=== PATIENT | male | born 1950 | race Caucasian/White ===

== ENCOUNTER → 2021-03-30 14:45 | Outpatient (CLI) | payer MEDICARE, OTHER, SELFPAY ==
--- NOTE | 2021-03-30 14:51 | ECHOCS_ITS ---
Reason For Study: ABNORMAL EKG Procedure This was a 2D Doppler, Color Flow transthoracic echocardiogram. The study was technically difficult. Exam performed in department. Left Ventricle Normal LV size. The estimated ejection fraction is 60 %. Normal diastology for age. No regional wall motion abnormalities noted. Right Ventricle Normal RV size. Normal systolic function. Atria Normal left atrium. Normal right atrium. No doppler evidence for ASD. Mitral Valve There is mild mitral annular calcification. There is no mitral valve stenosis. Trivial mitral valve insufficiency. Tricuspid Valve There is no tricuspid stenosis. Unable to estimate RV systolic pressure due to inadequate jet, pulmonary artery pressure probably normal. Aortic Valve Trisinus/trileaflet aortic valve. Aortic sclerosis, no stenosis. There is no aortic stenosis. No aortic valve insufficiency. Pulmonic Valve There is no pulmonic valvular stenosis. No pulmonic valve insufficiency. Great Vessels Normal aortic root. Pericardium/Pleural No pericardial effusion. Medication 22 gauge I.V. with prn adaptor inserted into left arm. Diluted definity 3.5ml given slow IV push to enhance endocardial definition. Performed a rapid injection of agitated mix of 9 cc saline and 1cc air to assess for atrial septal defect. MMode/2D Measurements & Calculations LVIDd: 4.6 cm IVSd: 1.0 cm Ao root diam: 3.4 cm LVIDs: 3.0 cm LVPWd: 0.99 cm RVDd: 3.4 cm FS: 34.4 % LAV(MOD-bp): 38.7 ml LVAd ap4: 31.3 cm2 SV(MOD-sp4): 60.4 ml LAV(MOD-bp) Indexed: 17.6 ml/m2 LVLd ap4: 8.1 cm LAV(MOD-sp2): 39.1 ml EDV(MOD-sp4): 97.7 ml LAV(MOD-sp4): 35.2 ml EDV(sp4-el): 102.5 ml LVAs ap4: 16.8 cm2 LVLs ap4: 6.4 cm ESV(MOD-sp4): 37.3 ml ESV(sp4-el): 37.3 ml EF(MOD-sp4): 61.9 % EF(sp4-el): 63.6 % SV(sp4-el): 65.2 ml LA A4 area: 15.1 cm2 LA dimension(2D): 3.8 cm RA A4 area: 13.2 cm2 Time Measurements MV dec time: 0.23 sec Doppler Measurements & Calculations MV E max edgar: 59.9 cm/sec Lat Peak E' Edgar: 9.1 cm/sec Med Peak E' Edgar: 6.8 cm/sec MV A max edgar: 109.7 cm/sec E/E' lat: 6.6 E/E' med: 8.8 MV E/A: 0.55 Ao V2 max: 135.9 cm/sec LV V1 max: 123.5 cm/sec PA V2 max: 74.3 cm/sec Ao max P.4 mmHg LV V1 max P.1 mmHg ECHO/Echo Complete W/ Contrast Interpretation Summary The estimated ejection fraction is 60 %. Normal diastology for age. Trivial mitral valve insufficiency. The study was technically difficult. Contrast injection was performed. Ordering Physician: Shabnam Davis Referring Physician: Shabnam Davis Performed By: Vannessa López RDCS
== END ==
PROVIDERS: PCP Internal Medicine; Referring Provider Internal Medicine; Visit Provider Internal Medicine
DX: R94.31 Abnormal electrocardiogram [ECG] [EKG] (principal)
CPT/HCPCS: 93306; Q9957; A4216; C8929; J3490

== ENCOUNTER → 2024-06-04 | Outpatient (CLI) | payer MEDICARE, OTHER, SELFPAY ==
--- NOTE | 2024-06-07 11:16 | STRESSREP_ITS ---
Stress Test Report Date: 06/04/2024 Procedure: Exercise tolerance test/imaging study Indications: Abnormal calcium score Consent: Per the patient Procedure: The patient exercised on a Douglas protocol for 7 minutes and 16 seconds achieving a peak heart rate of 125 bpm (85% predicted maximal heart rate) with a peak blood pressure 216/80 mmHg and a peak MET capacity of 10.1 METs. The baseline ECG demonstrated normal sinus rhythm. The peak exercise ECG demonstrated no significant ischemic changes. EKG during recovery revealed no significant ischemic changes [There were no cardiac dysrhythmias pretest, during exercise, or recovery]. The functional capacity was considered excellent for age. There was [no complaint of chest discomfort during exercise or recovery]. The examination was discontinued secondary to achieving target heart rate. Impression: 1. Technically adequate (percent predicted maximal heart rate greater than 85%) exercise tolerance test 2. Stress test is negative for exercise-induced EKG changes of ischemia 3. The test test is negative for exercise-induced chest pain 4. Functional capacity is excellent for age 5. Nuclear images pending Myocardial perfusion imaging study: Technique: The patient was injected with 14.3 mCi of technetium 99m Cardiolite and subsequently rest SPECT Cardiolite nuclear imaging was obtained in the horizontal long, vertical long, and short axis views. The patient exercised on a Douglas protocol. Please see above for details. The patient was injected with 44.5 mCi of technetium 99m Cardiolite and subsequently stress SPECT Cardiolite nuclear imaging was obtained in the horizontal long, vertical long, and short axis views. A gated Cardiolite study at peak stress was obtained. Interpretation: Rest and stress SPECT Cardiolite nuclear imaging status post realignment, normalization, and attenuation correction, demonstrates normal myocardial radioisotope uptake. The gated Cardiolite study demonstrates no significant regional wall motion abnormalities. The reported LVEF is 61%. Impression: 1. There is no evidence of significant ischemia or infarction. 2. The gated Cardiolite study reports an LVEF of 61%. This note was generated with Mes[employer] software. It may contain incorrect words, spelling, and punctuation that were not noted in checking the note before signing.
== END | disposition home or self-care (01) ==
PROVIDERS: PCP Internal Medicine; Referring Provider Internal Medicine; Visit Provider Internal Medicine
DX: R93.1 Abnormal findings on diagnostic imaging of heart and coronary circulation (principal); R94.31 Abnormal electrocardiogram [ECG] [EKG]
CPT/HCPCS: 78452; 93017; A9500; A4216

== ENCOUNTER 2024-08-05 07:05 | Inpatient (IN) | payer MEDICARE, OTHER, SELFPAY ==
[2024-08-05] VITALS (29 sets, daily range): BP systolic 94–175; BP diastolic 60–96; PULSE 68–95; RESP 12–32; TEMP 36.3–38.6; O2SAT 90–100; BMI 39.5; BMI 37.3
--- NOTE | 2024-08-05 07:14 | ED.RN ---
STEMI alert cancelled per Dr. Escoto.
--- NOTE | 2024-08-05 07:16 | EKG12_ITS ---
Test Reason : POST ARREST Blood Pressure : */* mmHG Vent. Rate : 73 BPM Atrial Rate : 73 BPM P-R Int : 158 ms QRS Dur : 100 ms QT Int : 466 ms P-R-T Axes : 58 32 41 degrees QTcB Int : 513 ms Normal sinus rhythm Possible Left atrial enlargement Nonspecific ST abnormality Prolonged QT Abnormal ECG Confirmed by LOUIE DAVIS ([id number]), medical editor ALICIA FAGAN ([id number]) on 08/06/2024 11:54:59 AM Referred By: Logan Escoto Confirmed By: LOUIE DAVIS
--- NOTE | 2024-08-05 07:16 | CT_ITS ---
EXAM: CT HEAD WITHOUT INTRAVENOUS CONTRAST CLINICAL INDICATION: unresponsive TECHNIQUE: Multiple axial images were obtained of the head without intravenous contrast. This CT exam was performed using one or more of the following dose reduction techniques: automated exposure control, adjustment of the mA and/or kV according to patient size, and/or use of iterative reconstruction technique. COMPARISON: No relevant prior studies available. FINDINGS: BRAIN AND EXTRA-AXIAL SPACES: Areas of diminished white matter density noted within both cerebral hemispheres suggestive of chronic microvascular change. No hemorrhage or mass effect. Ventricles are normal in size and the patient''s age. Posterior fossa is normal. Basilar cisterns are patent. BONES/JOINTS: Normal calvarium. SINUSES: No acute sinusitis. MASTOID AIR CELLS: Normal. Clear. CT/Brain/Head without Contrast IMPRESSION: 1. No acute intracranial abnormality. 2. Chronic microvascular changes. Electronically Signed: Flo Eng MD at 8:14 EST ,
--- NOTE | 2024-08-05 07:17 | RAD_ITS ---
EXAM: XR ABDOMEN, 1 VIEW CLINICAL INDICATION: NG Insertion TECHNIQUE: Frontal supine view of the abdomen/pelvis. COMPARISON: No relevant prior studies available. FINDINGS: GASTROINTESTINAL TRACT: Visualized portions of the large bowel are distended suggesting ileus. ORGANS: No organomegaly. BONES/JOINTS: No acute abnormality. TUBES, LINES AND DEVICES: Enteric tube extends into the stomach. Lower half of the abdomen is not included on this exam. RAD/Abdomen Single View (Portable) IMPRESSION: 1. Enteric tube extends into the stomach. 2. Visualized portions of the large bowel are distended suggesting ileus. Electronically Signed: Fol Eng MD at 8:16 EST ,
--- NOTE | 2024-08-05 07:21 | RAD_ITS ---
EXAM: XR CHEST, 1 VIEW CLINICAL INDICATION: ETT TECHNIQUE: Frontal view of the chest. COMPARISON: XR Chest dated 03/23/2007 FINDINGS: LUNGS AND PLEURAL SPACES: Shallow inspiration. No airspace opacification of the lungs. No pleural effusion or pneumothorax. HEART: Normal heart size. MEDIASTINUM: No mediastinal or hilar mass. BONES/JOINTS: No acute abnormality. TUBES, LINES AND DEVICES: Tip of the ET tube is 4.8 cm above the berry. Enteric tube extends into the stomach. RAD/Chest 1 View (Portable) IMPRESSION: Tip of the ET tube is 4.8 cm above the berry. Electronically Signed: Flo Eng MD at 8:15 EST ,
[2024-08-05] MEDS: Propofol 10MG/Ml 1,000 MG/100 ML Bottle 7.5 MG CONT INF (07:26)
[2024-08-05 07:27] LABS: Bacteria 0 SEEN /hpf (None Seen); Mucous, Urine 0 SEEN /hpf (<or=2+); Squamous Epithelial Cells - UA 0 SEEN /hpf (0-5)
[2024-08-05 07:41] LABS: Hemoglobin 15.7 g/dL (13.0-16.5); Mean Corp Hgb Conc 33.4 g/dL (32-36); Mean Corpuscular Hgb 33.4 pg (27.0-32.0); Mean Platelet Vol. 9.9 fl (6.2-12.0); POSITIVE COUNT YES; POSITIVE MORPHOLOGY YES; Platelet Count 237 K/mm3 (150-450); RBC Distribution Width CV 13.3 % (11.6-14.6); RBC Distribution Width SD 49.6 fl (35.1-43.9); White Blood Count 22.2 K/mm3 (4.4-11.0)
[2024-08-05 07:42] LABS: Color, Urine Yellow (Yellow); Glucose, Dipstick 1000 mg/dl (Normal); Ketone-Dipstick Negative (Negative); Leukocyte Esterase-Dipstick Negative /ul (Negative); Nitrite-Dipstick Negative (Negative); Occult Blood-Urine 250 /ul (Negative); Protein-Dipstick 500 mg/dl (Negative); Urine Bilirubin Dipstick Negative (Negative); Urine Clarity Sl. Cloudy (Clear); Urine Urobilinogen Normal (Normal)
[2024-08-05 07:49] LABS: Red Blood Cells-Urine 50-100 SEEN /hpf (0-5); White Blood Cells 0 SEEN /hpf (0-5)
[2024-08-05 08:03] LABS: CPK Total, Creatine Kinase 755 U/L (39-308); Triglycerides 127 mg/dL
--- NOTE | 2024-08-05 08:04 | HP.PCM.HOS_ITS ---
HPI - General General Date of Admission: 08/05/24 Date of Service: 08/05/24 Chief Complaint: Unresponsive HPI Narrative CIELO OLVERA, is a 74 M with a history of hypertension and suspected sleep apnea who presented [facility] ED 08/05/2024 after his found him unresponsive. History obtained per report as no family at bedside and patient intubated. Reportedly patient sleep in separate bedrooms as he snores, this a.m. heard him snoring differently than usual and when she went in and tried to wake him up he was unresponsive so she called EMS. Patient was in V-fib when they arrived and he received epinephrine and 2 defibrillation's, initial EKG was concerning for STEMI however when he arrived STEMI alert canceled by cardiology still plan to take him immediately to the [facility]. Patient had LMA on arrival to the ED and was successfully intubated. Patient placed on amiodarone, heparin drip, propofol. CT head obtained to verify no bleed and did not demonstrate any hemorrhage. Reportedly patient recently had a stress test that was unremarkable though it is unclear why this was done but sounds as it was more of a screening stress test. Patient evaluated at bedside prior to [facility]. Unable to obtain further history as patient intubated and sedated, no family at bedside at this time [facility] Medical History (Updated 08/05/24 @ 08:[address] Migue Willams, ) Actinic keratitis Allergic rhinitis Hyperglycemia Hyperlipemia Hypertension Sinusitis Thoracic ascending aortic aneurysm Home Medications ?Medication ?Instructions ?Recorded ?Last Taken ?Type amlodipine 5 mg tablet (Norvasc) 5 mg PO QDAY 07/01/24 Unknown History multivitamin 1 tab PO QDAY 07/01/24 Unknown History sildenafil 100 mg tablet 100 mg PO 3XW PRN 07/01/24 Unknown History Allergy/AdvReac Type Severity Reaction Status Date / Time No Known Allergies Allergy Verified 08/05/24 07:06 Family History unable to obtain Social History Smoking Status: Current some day smoker tobacco type: cigarettes Tobacco: How many years used: 20 quit status: considering quitting ROS ROS Narrative Unable to obtain secondary to intubated and sedated Vital Signs Vital Signs Vital Signs: 08/05/24 07:06 08/05/24 07:06 08/05/24 07:14 Temperature 97.7 F L Temperature Source Temporal Pulse Rate 68 84 Respiratory Rate 14 18 Respiratory Effort Mechanically Ventilated Respiratory Depth Normal Respiratory Pattern Normal Blood Pressure 175/96 H 175/96 H Blood Pressure Mean 122 122 Pulse Ox 95 96 Oxygen Delivery Method Ambu-Bag Ambu-Bag Oxygen Flow Rate (L/min) 15 Fraction of Inspired Oxygen (FIO2) 08/05/24 07:14 08/05/24 07:36 08/05/24 07:40 Temperature Temperature Source Pulse Rate 73 71 Respiratory Rate 22 H 20 H Respiratory Effort Respiratory Depth Respiratory Pattern Tachypnea Blood Pressure 134/72 H 134/72 H Blood Pressure Mean 92 92 Pulse Ox 94 97 Oxygen Delivery Method Mechanical Ventilator Oxygen Flow Rate (L/min) Fraction of Inspired Oxygen (FIO2) 50 Weight Weight: 125 kg Body Mass Index (BMI) 39.5 Physical Exam Narrative General: Intubated and sedated HEENT: Atraumatic, normocephalic Eyes: Eyes closed, no spontaneous opening Neck: Supple Respiratory: Mechanically ventilated Cardiovascular: Regular rate and rhythm at this time GI: Slightly distended Extremities: No edema Musculoskeletal: Presently sedated and not moving extremities spontaneously Neuro: Unable to participate in neuro exam secondary to intubated and sedated Skin: No rashes appreciated Psych: Unable to cooperate secondary to intubated and sedated Results Lab / Micro Data 08/05/24 07:31 08/05/24 07:31 Labs: Laboratory Results - last 24 hr 08/05/24 07:22: Urine Color Yellow, Urine Clarity Sl. Cloudy, Urine pH 7.0, Ur Specific [place] 1.010, Urine Protein 500 H, Urine Glucose (UA) 1000 H, Urine Ketones Negative, Urine Occult Blood 250 H, Urine Nitrite Negative, Urine Bilirubin Negative, Urine Urobilinogen Normal, Ur Leukocyte Esterase Negative, Urine RBC 50-100 SEEN, Urine WBC 0 SEEN, Ur Squamous Epith Cells 0 SEEN, Urine Bacteria 0 SEEN, Urine Mucus 0 SEEN 08/05/24 07:31: PT Cancelled 08/05/24 07:31: PT Cancelled, INR Cancelled 08/05/24 07:31: INR Cancelled, APTT Cancelled 08/05/24 07:31: APTT Cancelled, Total Creatine Kinase 755 H, Triglycerides 127 Assessment & Plan Assessment/Plan (1) Cardiac arrest with ventricular fibrillation: PLAN: Plan # Unresponsive with V-fib arrest -Patient was outside hospital arrest, found patient unresponsive and EMS found patient to be in V-fib, received epinephrine and was defibrillated x 2 -Presently normal sinus rhythm -Patient snores and there is concern for sleep apnea, unclear if there could have been any primary hypoxia or hypercapnia, ABG ordered the patient is presently mechanically ventilated -CT head with no overt bleeding -There is suspicion there could have been a cardiac event so patient going emergently to [facility] -Initial troponin 12,700 -Patient on heparin drip and amiodarone drip -Cardiology consult -Reclaimer consult -Echo ordered # Acute respiratory failure -Secondary to V-fib arrest -Patient was not protecting his airway and required intubation in the ED -Chest x-ray with no airspace opacification, pleural effusions, or pneumothorax -Patient will be admitted to ICU after [facility] -Reclaimer consult # Elevated troponin -Initial troponin 12,700 -Unclear if primary coronary event or if this is secondary to V-fib arrest -Patient on heparin drip and amiodarone -Patient emergently going to [facility] -Discussed with [employer] ticket checker at bedside # Hyperglycemia -Glucose 322 in the ED -Do not see where patient has history of diabetes -Could be stress response but unclear -Glucose checks and sliding scale insulin -Will check A1c # Elevated lactic acid -6.5 -Suspect due to V-fib arrest -Will trend -IVF # CHE versus CKD -Creatinine 1.45 but no baseline available in our system -IVF ordered -Repeat in the a.m. -Avoid nephrotoxic agents were possible # Elevated liver function tests -Suspect secondary to cardiac arrest and likely hypoperfusion -Repeat in the a.m. # Leukocytosis -Suspect secondary to stress response however unclear, chest x-ray with no acute process, reviewed film and agree with radiologist interpretation -UA does not appear infectious, COVID-negative -Will obtain blood cultures, respiratory panel, sputum culture if able -Not presently febrile no source of infection # Possible ileus -Seen on KUB -Patient with enteric tube in place #DVT ppx: Presently on heparin drip Mila Latham MD Charges/Coding Visit Charges Inpatient E&M: 81935 Init Hosp L3
[2024-08-05] MEDS: HEPARIN/D5w 25,000 UNITS 25,000 UNITS/250 ML IV.SOLN. 0.1 UNITS CONT INF (08:05)
[2024-08-05] MEDS: Famotidine 200 MG/20 ML MDV 20 MG in 0.9% Normal Saline (Pres. free 8 ML 300 MG IV (08:05)
[2024-08-05 08:06] LABS: Differential Indicated MANUAL DIFF
[2024-08-05] MEDS: Amiodarone 360 MG in Dextrose 5% Viaflo Bag 192.8 ML 33.3 MG CONT INF (08:06)
[2024-08-05 08:08] LABS: AST(SGOT) 135 U/L (15-37); Alanine Aminotransfer ALT/SGPT 70 U/L (16-61); Albumin, Serum 3.2 g/dL (3.2-5.0); Alkaline Phosphatase 124 U/L (45-117); Anion Gap 15 (5-15); BUN 13 mg/dL (7-18); Chloride 104 mmol/L (98-107); Creatinine, Serum 1.45 mg/dL (0.70-1.30); EST Glomerular Filtration Rate 51 mL/min (>60); Est Glom Filt Rate - Afr Amer 61 mL/min (>60); Globulin 3.2 g/dL (2.2-4.2); Glucose 322 mg/dL (74-106); Protein, Total 6.4 g/dL (6.4-8.2); Sodium Level 137 mmol/L (136-145); Troponin-I HS (w/2H Reflex) 12768 pg/mL (3.0-78.0)
[2024-08-05 08:08] LABS: Lactic Acid 6.5 mmol/L (0.4-1.9)
--- NOTE | 2024-08-05 08:16 | EX.ED.DYSGE1 ---
HPI History of Present Illness Chief Complaint: Chest Pain Informant: family and EMS Narrative Narrative: Patient presented by EMS from home cardiac arrest secondary to V-fib. There was a prehospital EKG ST depression lateral leads slight aVR elevation, STEMI call was initiated prearrival. Per EMS status post 4 direct-current cardioversions for V-fib. He was given epi x 2. He had a return of spontaneous circulation. LMA was placed. He is also status post 300 mg of amiodarone per EMS. Only notable history was hypertension. Per EMS patient spouse sleeps in separate rooms. There was snoring. Unresponsive. CPR started right away by spouse continued by EMS with treatment. Later discussion with spouse after return of spontaneous circulation on a ventilator. He has undiagnosed sleep apnea, they sleep in separate rooms due to snoring. She went into the room he is snoring a little differently she tried to wake him up he did not wake up therefore EMS was called. There is no cyanosis noted per spouse. Reported he had a screening stress test 3 weeks ago that was normal followed up with his PCP a week ago. she states he had a positive screening test. Unclear but likely calcium scoring test. Denied any cardiac history. Prior similar symptoms: No PFSH PFS Medical History (Updated 08/05/24 @ 14:34 by Noemi Fernández) STEMI (ST elevation myocardial infarction) (08/04/21) CAD (coronary artery disease), [place] coronary artery Tobacco abuse Thoracic ascending aortic aneurysm Allergic rhinitis Sinusitis Hyperlipemia Actinic keratitis Hypertension Hyperglycemia Home Medications ?Medication ?Instructions ?Recorded ?Last Taken ?Type amlodipine 5 mg tablet (Norvasc) 5 mg PO QDAY 07/01/24 Unknown History multivitamin 1 tab PO QDAY 07/01/24 Unknown History sildenafil 100 mg tablet 100 mg PO 3XW PRN 07/01/24 Unknown History Allergy/AdvReac Type Severity Reaction Status Date / Time No Known Allergies Allergy Verified 08/05/24 07:06 Family History (Updated 08/05/24 @ 09:48 by Yamileth MENARD, PA) Mother Heart disease Hypertension Family History unable to obtain Surgical History (Updated 08/05/24 @ 12:26 by Magdaleno Pritchard [employer], [employer] MECH[employer]IC-C) S/P coronary artery stent placement Social History Smoking Status: Current some day smoker tobacco type: cigarettes Tobacco: How many years used: 20 quit status: considering quitting ROS ROS ED Review of Systems ROS Unobtainable: due to endotracheal tube and due to mental status EXAM Physical Exam Const Vital Signs: 08/05/24 07:06 08/05/24 07:06 08/05/24 07:14 Temperature 97.7 F L Temperature Source Temporal Pulse Rate 68 84 Respiratory Rate 14 18 Respiratory Effort Mechanically Ventilated Respiratory Depth Normal Respiratory Pattern Normal Blood Pressure 175/96 H 175/96 H Blood Pressure Mean 122 122 Pulse Ox 95 96 Oxygen Delivery Method Ambu-Bag Ambu-Bag Oxygen Flow Rate (L/min) 15 Fraction of Inspired Oxygen (FIO2) 08/05/24 07:14 08/05/24 07:36 08/05/24 07:40 Temperature Temperature Source Pulse Rate 73 71 Respiratory Rate 22 H 20 H Respiratory Effort Respiratory Depth Respiratory Pattern Tachypnea Blood Pressure 134/72 H 134/72 H Blood Pressure Mean 92 92 Pulse Ox 94 97 Oxygen Delivery Method Mechanical Ventilator Oxygen Flow Rate (L/min) Fraction of Inspired Oxygen (FIO2) 50 Constitutional Narrative: Unresponsive with LMA on a backboard. HEENT Reports moist mucous membranes Eyes Eyes Narrative: Nondilated pupils Chest Wall Chest Narrative: Chest compression vest device Cardio regular rate and regular rhythm GI normal to inspection, nondistended, normoactive bowel sounds Extremity Extremity Narrative: Occasional jerking movements of arms and legs Psych Psych Narrative: Unresponsive, GCS 3 MDM MDM MDM Narrative Medical decision making narrative: Interventions / MDM: Differential diagnosis: V-fib arrest, respiratory failure, hypertension history Diagnosis considered but do not suspect: Intracranial hemorrhage/brain swell however CT brain negative. My EKG interpretation: EKG at 0706: ST depressions lateral leads I rhythm lead on inferior leads had elevation. 0708: Repeated due to artifactual concerns there slight elevation at aVR depressions at lateral leads. Does not meet STEMI criteria. Imaging independently reviewed and interpreted by myself: CT brain: No edema noted, no intracranial hemorrhage. 1 view chest x-ray: ETT intact in correct position. No pneumothorax. KUB 1 view: NG tube in adequate position. External documents reviewed: N/A Test considered but not ordered:N/A ED course: Patient had EKG sent to STEMI physician Dr. Escoto, did not meet STEMI criteria. With a V-fib arrest status post amiodarone 300 by EMS. Recommend amiodarone drip recommend heparin drip. Patient had labs drawn, definitive airway was placed with no difficulties, NG tube. X-rays in adequate position. He was sent for CT of the brain to rule out intracranial hemorrhage or edema. Procedure note: Airway exchange. Patient currently LMA with [id number] oxygenation. LMA removed, suctioning performed, Glidoscope use direct visualization. 7.5 Faroese tube placed directly in the airway. Positive capnography positive breath sounds. This was secured 25 cm at the lips. No complications. Post intubation x-ray good position. 0750: Morning interventions Dr. Christiansen down the ED reviewed EKG and imaging studies with CT brain and discussed his history. With V-fib arrest there is concerning for possible LAD lesion therefore with negative CT will be taken to the [facility]. Heparin drip was started. Family was updated both by myself and cardiology. There was noted blood from the NG tube therefore Pepcid IV was ordered likely stress-induced from his V-fib arrest. I spoke with hospitalist Dr. Latham for plan admission to ICU after [facility]. 0815: Discussed with patient's PCP Dr. Ortega, he had a calcium score that was 250 range not significant. She states the LAD calcium was in the 140s, RCA was 110s. Reported he had a 3.4 cm known thoracic aneurysm ascending pending vascular referral. 0820: Troponin returned while patient in [facility] 12,000 768. Lactate 6.5. Creatinine 1.45. White count 22. Hemoglobin 15. Urine with RBCs. No infection. COVID-negative. Re-evaluation: Critical Disposition discussed with patient/family/significant other: Patient and family Case discussed with consulting clinician: Interventional cardiology, hospitalist This note was generated with reportbrain dictation software. It may contain incorrect words, spelling, and punctuation that were not noted in checking the note before signing. Lab Data Attestation: I reviewed the patient's lab results. Labs: Laboratory Results - last 24 hr 08/05/24 08/05/24 08/05/24 07:22 07:26 07:31 WBC 22.2 H RBC 4.70 Hgb 15.7 Hct 47.0 MCV 100.0 H MCH 33.4 H MCHC 33.4 RDW Std Deviation 49.6 H RDW Coeff of Cecilio 13.3 Plt Count 237 MPV 9.9 Neut % (Auto) Not Reportable Absolute Neuts (auto) 17.3 H Absolute Lymphs (auto) 3.77 Total Counted 100 Neutrophils % (Manual) 75 H Band Neutrophils % 3 Lymphocytes % (Manual) 17 L Monocytes % (Manual) 1 Eosinophils % (Manual) 2 Metamyelocytes % 2 H Diff Path Review May foll Platelet Estimate ADEQUATE RBC Morphology NORM C+C Polychromasia 1+ PT Cancelled INR APTT Sodium Potassium Chloride Carbon Dioxide Anion Gap BUN Creatinine Estim Creat Clear Calc Est GFR (MDRD) Af Amer Est GFR (MDRD) Non-Af BUN/Creatinine Ratio Glucose Lactic Acid 6.5 H* Calcium Total Bilirubin AST ALT Alkaline Phosphatase Total Creatine Kinase Troponin I High Sens Total Protein Albumin Globulin Albumin/Globulin Ratio Triglycerides Urine Color Yellow Urine Clarity Sl. Cloudy Urine pH 7.0 Ur Specific [place] 1.010 Urine Protein 500 H Urine Glucose (UA) 1000 H Urine Ketones Negative Urine Occult Blood 250 H Urine Nitrite Negative Urine Bilirubin Negative Urine Urobilinogen Normal Ur Leukocyte Esterase Negative Urine RBC 50-100 SEEN Urine WBC 0 SEEN Ur Squamous Epith Cells 0 SEEN Urine Bacteria 0 SEEN Urine Mucus 0 SEEN 08/05/24 08/05/24 08/05/24 07:31 07:31 07:31 WBC RBC Hgb Hct MCV MCH MCHC RDW Std Deviation RDW Coeff of Cecilio Plt Count MPV Neut % (Auto) Absolute Neuts (auto) Absolute Lymphs (auto) Total Counted Neutrophils % (Manual) Band Neutrophils % Lymphocytes % (Manual) Monocytes % (Manual) Eosinophils % (Manual) Metamyelocytes % Diff Path Review Platelet Estimate RBC Morphology Polychromasia PT Cancelled INR Cancelled Cancelled APTT Cancelled Cancelled Sodium 137 Potassium 4.0 Chloride 104 Carbon Dioxide 18.0 L Anion Gap 15 BUN 13 Creatinine 1.45 H Estim Creat Clear Calc 60.20 Est GFR (MDRD) Af Amer 61 Est GFR (MDRD) Non-Af 51 L BUN/Creatinine Ratio 9.0 L Glucose 322 H Lactic Acid Calcium 9.0 Total Bilirubin 0.60 AST 135 H ALT 70 H Alkaline Phosphatase 124 H Total Creatine Kinase 755 H Troponin I High Sens 20955 H* Total Protein 6.4 Albumin 3.2 Globulin 3.2 Albumin/Globulin Ratio 1.0 Triglycerides 127 Urine Color Urine Clarity Urine pH Ur Specific [place] Urine Protein Urine Glucose (UA) Urine Ketones Urine Occult Blood Urine Nitrite Urine Bilirubin Urine Urobilinogen Ur Leukocyte Esterase Urine RBC Urine WBC Ur Squamous Epith Cells Urine Bacteria Urine Mucus Radiography Diagnostic Testing: Clinical Impression(s) from Imaging Studies Brain CT 08/05/24 07:16 IMPRESSION: 1. No acute intracranial abnormality. 2. Chronic microvascular changes. Electronically Signed: Flo Eng MD at 8:14 EST Reading Location ID and State: [facility] / [place] Tel , Service support , KUB X-Ray 08/05/24 07:17 IMPRESSION: 1. Enteric tube extends into the stomach. 2. Visualized portions of the large bowel are distended suggesting ileus. Electronically Signed: Flo Eng MD at 8:16 EST Reading Location ID and State: [facility] / [place] Tel , Service support , Chest X-Ray 08/05/24 07:21 IMPRESSION: Tip of the ET tube is 4.8 cm above the berry. Electronically Signed: Flo Eng MD at 8:15 EST , Critical Care Time Critical Care Time: Yes Critical care time (excluding procedures): 30-74 minutes, Discussing w/Patient &/or Family/Poster, Discussing w/Consultants, Arranging Admission or Transfer, Performing Direct Patient Care at Bedside and - (40 minutes) Discharge Plan Dx/Rx/DC Orders Clinical Impression: Cardiac arrest with ventricular fibrillation, Hypertension, Acute respiratory failure, Sleep apnea Disposition Disposition: [facility]
[2024-08-05 08:24] LABS: International Normalized Ratio 1.1; Prothrombin Time (Protime)PT. 14.6 SECONDS (11.7-14.9)
[2024-08-05 08:25] LABS: Partial Thromboplast Time 25.3 Seconds (24.1-36.2)
--- NOTE | 2024-08-05 08:37 | CON.PCM.CA_ITS ---
<Statement entered by Ara Christiansen MD - 08/05/24 16:16> Cardiac care plan recommendations; Pt seen & evaluated w/MARCELO. I personally interviewed & exam the pt. I was involved in all aspects of pt's orders, interpretation of results & treatment Very critical patient with cardiac arrest CPR was done by his at home He was shocked twice by EMS for V-fib and was started NAB Brought into the ED at [facility] where he had a CT head showed no cerebral bleed Taken to the [facility] Underwent cardiac catheterization. Had an PR and a flush occlusion of diagonal branch with a moderate size LAD. Was critical patient intubated. Also had a high-grade lesion involving large dominant proximal RCA where he underwent PCI and stent using drug-eluting stent. Patient will be monitoring ICU Also noted he had hematuria and discontinued the Integrilin Repeat echocardiogram showed global LV hypokinesia with severe LV systolic dysfunction EF in the range of around 25% Will continue medical therapy. Guarded prognosis based on his current presentation. Will continue to monitor and follow-up clinically. I discussed the finding of cardiac catheterization and the cardiac care plan in detail with the family/ Patient transferred from [facility] to ICU he was still intubated. However he was stable hemodynamically. Ara Christiansen MD,FACC,[facility] Ara Christiansen MD,FACC,[facility] Assessment & Plan Assessment/Plan (1) Cardiac arrest with ventricular fibrillation: (2) CAD (coronary artery disease), [place] coronary artery: (3) S/P coronary artery stent placement: (4) Hypertension: (5) Hyperlipemia: HPI Consult Data Date of Consult: 08/05/24 HPI Narrative HPI Narrative: CIELO OLVERA, is a 74 M who presented to [facility] emergency room on 08/05/2024 after his found him unresponsive. This morning had noted was snoring differently than what he had prior. She tried to wake him up and he was unresponsive she called EMS. Patient was noted to be in V-fib when they arrived. He did receive epinephrine and 2 defibrillations, initial EKG was concerning for STEMI. He was intubated upon arrival to the emergency room, placed on amiodarone, heparin drip and propofol. CT of the head did not demonstrate any bleed or hemorrhage. He was urgently taken to the [facility]. In May 2024 he underwent a stress test where he was able to walk for 7 minutes and 16 seconds with the Douglas protocol. No EKG changes were noted. Nuclear images were negative for ischemia. Stress test was done for abnormal calcium score. He does have a history of hypertension, hyperlipidemia, tobacco abuse in which she was working on smoking cessation. [facility] Medical History (Updated 08/05/24 @ 09:50 by Yamileth MENARD, PA) CAD (coronary artery disease), [place] coronary artery Tobacco abuse Thoracic ascending aortic aneurysm Allergic rhinitis Sinusitis Hyperlipemia Actinic keratitis Hypertension Hyperglycemia Home Medications ?Medication ?Instructions ?Recorded ?Last Taken ?Type amlodipine 5 mg tablet (Norvasc) 5 mg PO QDAY 07/01/24 Unknown History multivitamin 1 tab PO QDAY 07/01/24 Unknown History sildenafil 100 mg tablet 100 mg PO 3XW PRN 07/01/24 Unknown History Allergy/AdvReac Type Severity Reaction Status Date / Time No Known Allergies Allergy Verified 08/05/24 07:06 Family History (Updated 08/05/24 @ 09:47 by Yamileth MENARD, PA) Mother Heart disease Hypertension Family History unable to obtain Surgical History (Updated 08/05/24 @ 09:50 by Yamileth MENARD PA) S/P coronary artery stent placement Social History Smoking Status: Current some day smoker tobacco type: cigarettes Tobacco: How many years used: 20 quit status: considering quitting ROS ROS Narrative Unable to obtain secondary to intubated and sedated Risk Stratification Risk Stratification Applicable: Yes Age >/= 65: Yes >/= 3 CAD Risk Factors (HTN, HLD, DM, family hx of CAD, or current smoker): Yes Aspirin Use in the Past 7 Days: No Severe Angina (>/= episodes in 24 hours): No EKG ST Changes >/= 0.5mm: Yes Positive Cardiac Marker: Yes JOSÉ MIGUEL Risk Stratification Score: 4 JOSÉ MIGUEL % Risk: 20% Risk Objective Data Vital Signs: Vital Signs Temp Pulse Resp BP Pulse Ox O2 Del Method O2 Flow Rate 97.7 F L 71 20 H 134/72 H 97 Mechanical Ventilator 15 08/05/24 07:06 08/05/24 07:36 08/05/24 07:36 08/05/24 07:40 08/05/24 07:36 08/05/24 07:36 08/05/24 07:06 FiO2 50 08/05/24 07:14 Oxygen Flow Rate (L/min) 15 Oxygen Delivery Method Mechanical Ventilator Weight: 275 lb 9.245 oz Body Mass Index (BMI) 39.5 Intake & Output: Intake and Output for Last 24 Hours 08/03/24 08/04/24 08/05/24 23:59 23:59 23:59 Intake Total 111.75 / 111.75 Balance 111.75 / 111.75 Lab / Micro Data 08/05/24 07:31 08/05/24 07:31
--- NOTE | 2024-08-05 08:37 | PCM.CONS.C ---
Assessment & Plan Assessment/Plan (1) Cardiac arrest with ventricular fibrillation: (2) CAD (coronary artery disease), [place] coronary artery: (3) S/P coronary artery stent placement: (4) Hypertension: (5) Hyperlipemia: HPI Consult Data Date of Consult: 08/05/24 HPI Narrative HPI Narrative: CIELO OLVERA, is a 74 M who presented to [facility] emergency room on 08/05/2024 after his found him unresponsive. This morning had noted was snoring differently than what he had prior. She tried to wake him up and he was unresponsive she called EMS. Patient was noted to be in V-fib when they arrived. He did receive epinephrine and 2 defibrillations, initial EKG was concerning for STEMI. He was intubated upon arrival to the emergency room, placed on amiodarone, heparin drip and propofol. CT of the head did not demonstrate any bleed or hemorrhage. He was urgently taken to the [facility]. In May 2024 he underwent a stress test where he was able to walk for 7 minutes and 16 seconds with the Douglas protocol. No EKG changes were noted. Nuclear images were negative for ischemia. Stress test was done for abnormal calcium score. He does have a history of hypertension, hyperlipidemia, tobacco abuse in which she was working on smoking cessation. [facility] Medical History (Updated 08/05/24 @ 09:50 by Yamileth MENARD, PA) CAD (coronary artery disease), [place] coronary artery Tobacco abuse Thoracic ascending aortic aneurysm Allergic rhinitis Sinusitis Hyperlipemia Actinic keratitis Hypertension Hyperglycemia Home Medications ?Medication ?Instructions ?Recorded ?Last Taken ?Type amlodipine 5 mg tablet (Norvasc) 5 mg PO QDAY 07/01/24 Unknown History multivitamin 1 tab PO QDAY 07/01/24 Unknown History sildenafil 100 mg tablet 100 mg PO 3XW PRN 07/01/24 Unknown History Allergy/AdvReac Type Severity Reaction Status Date / Time No Known Allergies Allergy Verified 08/05/24 07:06 Family History (Updated 08/05/24 @ 09:47 by Yamileth MENARD, PA) Mother Heart disease Hypertension Family History unable to obtain Surgical History (Updated 08/05/24 @ 09:50 by Yamileth MENARD, PA) S/P coronary artery stent placement Social History Smoking Status: Current some day smoker tobacco type: cigarettes Tobacco: How many years used: 20 quit status: considering quitting ROS ROS Narrative Unable to obtain secondary to intubated and sedated Risk Stratification Risk Stratification Applicable: Yes Age >/= 65: Yes >/= 3 CAD Risk Factors (HTN, HLD, DM, family hx of CAD, or current smoker): Yes Aspirin Use in the Past 7 Days: No Severe Angina (>/= episodes in 24 hours): No EKG ST Changes >/= 0.5mm: Yes Positive Cardiac Marker: Yes JOSÉ MIGUEL Risk Stratification Score: 4 JOSÉ MIGUEL % Risk: 20% Risk Objective Data Vital Signs: Vital Signs Temp Pulse Resp BP Pulse Ox O2 Del Method O2 Flow Rate 97.7 F L 71 20 H 134/72 H 97 Mechanical Ventilator 15 08/05/24 07:06 08/05/24 07:36 08/05/24 07:36 08/05/24 07:40 08/05/24 07:36 08/05/24 07:36 08/05/24 07:06 FiO2 50 08/05/24 07:14 Oxygen Flow Rate (L/min) 15 Oxygen Delivery Method Mechanical Ventilator Weight: 275 lb 9.245 oz Body Mass Index (BMI) 39.5 Intake & Output: Intake and Output for Last 24 Hours 08/03/24 08/04/24 08/05/24 23:59 23:59 23:59 Intake Total 111.75 / 111.75 Balance 111.75 / 111.75 Lab / Micro Data 08/05/24 07:31 08/05/24 07:31 Labs: Laboratory Results - last 24 hr 08/05/24 07:22: Urine Color Yellow, Urine Clarity Sl. Cloudy, Urine pH 7.0, Ur Specific [place] 1.010, Urine Protein 500 H, Urine Glucose (UA) 1000 H, Urine Ketones Negative, Urine Occult Blood 250 H, Urine Nitrite Negative, Urine Bilirubin Negative, Urine Urobilinogen Normal, Ur Leukocyte Esterase Negative, Urine RBC 50-100 SEEN, Urine WBC 0 SEEN, Ur Squamous Epith Cells 0 SEEN, Urine Bacteria 0 SEEN, Urine Mucus 0 SEEN 08/05/24 07:26: Lactic Acid 6.5 H* 08/05/24 07:31: WBC 22.2 H, RBC 4.70, Hgb 15.7, Hct 47.0, MCV 100.0 H, MCH 33.4 H, MCHC 33.4, RDW Std Deviation 49.6 H, RDW Coeff of Cecilio 13.3, Plt Count 237, MPV 9.9, Neut % (Auto) Not Reportable, PT Cancelled 08/05/24 07:31: PT Cancelled, INR Cancelled 08/05/24 07:31: INR Cancelled, APTT Cancelled 08/05/24 07:31: APTT Cancelled, Sodium 137, Potassium 4.0, Chloride 104, Carbon Dioxide 18.0 L, Anion Gap 15, BUN 13, Creatinine 1.45 H, Estim Creat Clear Calc 60.20, Est GFR (MDRD) Af Amer 61, Est GFR (MDRD) Non-Af 51 L, BUN/Creatinine Ratio 9.0 L, Glucose 322 H, Calcium 9.0, Total Bilirubin 0.60, AST 135 H, ALT 70 H, Alkaline Phosphatase 124 H, Total Creatine Kinase 755 H, Troponin I High Sens 44469 H*, Total Protein 6.4, Albumin 3.2, Globulin 3.2, Albumin/Globulin Ratio 1.0, Triglycerides 127 08/05/24 08:06: PT 14.6, INR 1.1, APTT 25.3 Micro: Microbiology 08/05/24 07:26 Mucosa - Nose Coronavirus COVID-19 PCR - Final Cardiology Labs/Tests 08/05/24 07:22: Urine Color Yellow, Urine Clarity Sl. Cloudy, Urine pH 7.0, Ur Specific [place] 1.010, Urine Protein 500 H, Urine Glucose (UA) 1000 H, Urine Ketones Negative, Urine Occult Blood 250 H, Urine Nitrite Negative, Urine Bilirubin Negative, Urine Urobilinogen Normal, Ur Leukocyte Esterase Negative, Urine RBC 50-100 SEEN, Urine WBC 0 SEEN 08/05/24 07:26: Lactic Acid 6.5 H* 08/05/24 07:31: WBC 22.2 H, RBC 4.70, Hgb 15.7, Hct 47.0, MCV 100.0 H, MCH 33.4 H, MCHC 33.4, Plt Count 237, MPV 9.9, Neut % (Auto) Not Reportable, PT Cancelled 08/05/24 07:31: PT Cancelled, INR Cancelled 08/05/24 07:31: INR Cancelled, APTT Cancelled 08/05/24 07:31: APTT Cancelled, Sodium 137, Potassium 4.0, Chloride 104, Carbon Dioxide 18.0 L, Anion Gap 15, BUN 13, Creatinine 1.45 H, Est GFR (MDRD) Af Amer 61, Est GFR (MDRD) Non-Af 51 L, BUN/Creatinine Ratio 9.0 L, Glucose 322 H, Calcium 9.0, Total Bilirubin 0.60, Triglycerides 127 08/05/24 08:06: PT 14.6, INR 1.1, APTT 25.3 Radiography Diagnostic Testing: Radiology Impression Brain CT 08/05/24 07:16 IMPRESSION: 1. No acute intracranial abnormality. 2. Chronic microvascular changes. Electronically Signed: Flo Eng MD at 8:14 EST , KUB X-Ray 08/05/24 07:17 IMPRESSION: 1. Enteric tube extends into the stomach. 2. Visualized portions of the large bowel are distended suggesting ileus. Electronically Signed: Flo Eng MD at 8:16 EST , Chest X-Ray 08/05/24 07:21 IMPRESSION: Tip of the ET tube is 4.8 cm above the berry. Electronically Signed: Flo Eng MD at 8:15 EST ,
[2024-08-05 08:38] LABS: Eosinophil 2 % (0-5); Lymphocyte 17 % (19-41); Metamyelocyte 2 % (0-1); Monocyte 1 % (0-10); Neutrophil-Band 3 % (0-5); Neutrophil-Segmented 75 % (47-70); Total Cells Counted 100 (MANUAL DIFF)
[2024-08-05 08:47] LABS: Platelet Estimate ADEQUATE (ADEQ); Polychromasia 1+; Red Cell Morphology NORM C+C NORMAL (NORM C&C)
[2024-08-05 08:54] LABS: Absolute Lymphocyte Count 3.77 X10^3/uL (0.83-4.51); Absolute Neutrophil Count 17.3 X10^3/uL (2.0-7.7)
[2024-08-05 09:32] LABS: Reflex Troponin-HS? (from REC) Y
[2024-08-05] MEDS: EPTIFIBATIDE 75 MG/100 ML VIAL 10 MG CONT INF (09:40)
--- NOTE | 2024-08-05 09:41 | ECHOCS_ITS ---
Reason For Study: Arrhythmia- VFib arrest Procedure This was a 2D Doppler, Color Flow transthoracic echocardiogram. The study was technically difficult. Contrast injection was performed. Patient scanned supine and on the vent. Exam performed portable in ICU/CCU. Left Ventricle Normal LV size. The estimated ejection fraction is 25 %. Severe global left ventricular systolic dysfunction. Right Ventricle The right ventricle is not well visualized. Atria Normal left atrium. Normal right atrium. Mitral Valve There is Mild focal posterior mitral annular calcification. There is no mitral valve stenosis. Tricuspid Valve Not well visualized. Aortic Valve Trisinus/trileaflet aortic valve. Mild focal aortic valve thickening. There is no aortic stenosis. Pulmonic Valve The pulmonic valve is not well visualized. Trivial pulmonic valve insufficiency. Great Vessels Mild atherosclerosis of the ascending aorta. Normal sized aortic root. Pericardium/Pleural No pericardial effusion. Medication Diluted definity 5ml given slow IV push to enhance endocardial definition. MMode/2D Measurements & Calculations LVIDd: 4.3 cm IVSd: 1.2 cm Ao root diam: 3.8 cm LVIDs: 3.7 cm LVPWd: 1.5 cm FS: 13.8 % LAV(MOD-sp4): 23.0 ml LVAd ap4: 32.2 cm2 SV(MOD-sp4): 23.7 ml LVLd ap4: 8.0 cm SI(MOD-sp4): 9.9 ml/m2 EDV(MOD-sp4): 110.4 ml EDV(sp4-el): 110.8 ml LVAs ap4: 26.8 cm2 LVLs ap4: 7.1 cm ESV(MOD-sp4): 86.7 ml ESV(sp4-el): 85.9 ml EF(MOD-sp4): 21.5 % EF(sp4-el): 22.5 % SV(sp4-el): 24.9 ml LA A4 area: 11.5 cm2 RA A4 area: 10.8 cm2 TAPSE: 1.5 cm Doppler Measurements & Calculations MV E max alfred: 78.7 cm/sec Ao V2 max: 65.2 cm/sec LV V1 max: 64.7 cm/sec Ao max P.7 mmHg LV V1 max P.7 mmHg LV V1 mean P.86 mmHg LV V1 mean: 42.9 cm/sec LV V1 VTI: 8.8 cm ECHO/Echo Complete W/ Contrast Interpretation Summary The estimated ejection fraction is 25 %. Severe global left ventricular systolic dysfunction. There is Mild focal posterior mitral annular calcification. Mild focal aortic valve thickening. The study was technically difficult. Contrast injection was performed. Ordering Physician: Mila Latham Referring Physician: Shabnam Davis M.D. Performed By: Alf Post RCS
[2024-08-05 10:09] LABS: Base Excess -6 mmol/L (-2 to +2); Blood Gas Specimen Type ART; Mode AC; O2 Delivery Device Adult Vent; PEEP 5; PO2 112 mmHG (75-100); RR 16; SITE Art Line; SO2 98 % (95-99); Total Carbon Dioxide 21 mmol/L; pCO2 38.8 mmHg (35-45); pH 7.32 (7.35-7.45)
[2024-08-05] MEDS: 0.9% Normal Saline (1000mL) 1,000 ML 100 ML IV (10:14)
[2024-08-05] MEDS: Chlorhexidine 15 ML PO ×2 (10:15→21:48)
[2024-08-05 10:21] LABS: ACT Activated Clotting Time 269 sec (74-137)
[2024-08-05 10:21] LABS: ACT Activated Clotting Time 207 sec (74-137)
--- NOTE | 2024-08-05 10:30 | PCIREPORT_ITS ---
PCI Cardiac Cath Report PCI Report: PCI cardiac cath report; 1. Moderate sedation 2. Selective left coronary angiography 3. Selective right coronary angiography 4. Measurement of LVEDP and a pullback pressure 5. PCI of proximal RCA 80% with predilatation using 2 x 12 mm balloon Followed by placement of drug-eluting stent 3.5 x 30 mm and achievement of excellent result with reduction of stenosis to 0 Pre and post JOSÉ MIGUEL III flow 6. Suture applied to right common femoral artery sheath with the plan of manual pressure to maintain hemostasis. Preprocedure diagnosis; Patient is postcardiac arrest, with V-fib shocked twice and given amiodarone and start amiodarone drip # Change in the EKG with diffuse ST depression and ST elevation in aVR. Patient had a history of smoking and CHERYLE, hypertension, hyperlipidemia 74-year-old patient brought to the emergency to the ED at [facility] following cardiac arrest. Evidently noted patient was snoring he was in a separate room and she went over and he was not responsive she called EMS and started CPR. EMS on arrival noted patient in V-fib shocked him twice and started on amiodarone and epi achieve ROSC Intubated on the scene CT head was done which showed no cerebral bleed. Has significant change in the EKG with ST elevation in aVR and diffuse ST depression. Based on this presentation was taken as an emergency to the It Systems Analyst Consultant. Interventional equipment and catheters used 1. 6 Peruvian sheath in the right common femoral artery 2. 5 Peruvian JL 3 5 #3 5 Peruvian JR 4 4. 6 Peruvian JR4 guide 5. 0.014 180 cm run-through extra floppy glide wire 6. 2 x 12 mm emerge MR balloon 7. 3 x 5 x 30 mm Jose Luis frontier drug-eluting stent. To the proximal RCA Medication used in the It Systems Analyst Consultant Heparin with ACT acceptable 2 doses of intravenous Integrilin. 3. IC nitroglycerin. Procedure in detail; Patient was brought to the It Systems Analyst Consultant as an emergency Under fluoroscopic guidance access obtained from the right common femoral artery. We proceed with diagnostic catheter angiographic view of the left and right coronary system were obtained Noted the LAD is moderate in size does not reach all the way to the apex And there is a flush occlusion at the mid LAD which probably diagonal branch as the culprit With a JOSÉ MIGUEL-3 flow noted in the left anterior descending artery. The left circumflex is moderate to large in size and normal to graphically The left main had no significant atherosclerosis. Following this we proceeded with the diagnostic angiography of the RCA identified a lesion at the 80-90% stenosis of the proximal RCA which is a large dominant vessel And will proceed with the interventional guide with a JR4 guide and then run- through wire across the lesion perform balloon dilatation using 2 x 12 and followed by placement of drug-eluting stent and achievement of excellent result with a JOÉS MIGUEL-3 flow pre and post and reduction of stenosis to 0% Hemodynamics; LVEDP is around 18 mmHg There is no systolic gradient across aortic valve Coronary angiography; 1. Left main is normal angiographically bifurcating into LAD and left circumflex 2. Left anterior descending artery is moderate in size does not reach all the way to the apex. 3. There is a flush occlusion at the mid LAD likely this is a diagonal branch however the LAD had a OJSÉ MIGUEL-3 flow and. 4. The left circumflex artery is normal angiographically 5. RCA had a high-grade lesion which is 80 to 90% in the proximal RCA Diffuse atherosclerosis in the mid RCA is a large dominant vessel Successful PCI of the RCA and we decided to treat occlusion occlusion which is a flush occlusion at the LAD medically Patient remained stable in the It Systems Analyst Consultant. Cardiac medications; 1. Patient was given aspirin a total of 325 in the ED through NGT 2. We gave Brilinta through the NGT when 80 mg 3. Will give 2 boluses of Integrilin with the plan of starting Integrilin as better renal dose As his creatinine is 1.4 5. Will continue on dual antiplatelet therapy Patient has been intubated and will be monitored in the ICU Duration of the CPR and cardiac arrest is not clear. Therefore patient may have anoxic encephalopathy the CT is negative for any cerebral bleed Patient will be under care of principal database developer and neuro evaluation Bostian intubation. Hemostasis will be maintained with manual pressure Will perform regular echocardiogram to assess and evaluate his LV function. No immediate complication in the It Systems Analyst Consultant. Ara Christiansen MD,[facility]
--- NOTE | 2024-08-05 10:45 | EKG12_ITS ---
Test Reason : POST ARREST Blood Pressure : */* mmHG Vent. Rate : 68 BPM Atrial Rate : 68 BPM P-R Int : 158 ms QRS Dur : 108 ms QT Int : 406 ms P-R-T Axes : 65 34 130 degrees QTcB Int : 431 ms Normal sinus rhythm Possible Left atrial enlargement ST depression, consider subendocardial injury Nonspecific T wave abnormality Abnormal ECG Confirmed by LOUIE DAVIS ([id number]), social media editor ALICIA FAGAN ([id number]) on 08/06/2024 11:55:17 AM Referred By: Logan Escoto Confirmed By: LOUIE DAVIS
[2024-08-05 11:31] LABS: Reflex Lactate? Y
[2024-08-05 11:44] LABS: Bedside Glucose 132 mg/dL (74-106)
--- NOTE | 2024-08-05 12:34 | CON.PCM.CC_ITS ---
Assessment & Plan Assessment/Plan (1) Cardiac arrest with ventricular fibrillation: PLAN: Plan RECOMMENDATIONS: 1. Continue assist-control mode mechanical ventilation. Wean FiO2 and PEEP as tolerated. 2. Obtain follow-up ABG. 3. Obtain sputum and send for culture. 4. Recommend holding sedation to better assess neurologic status. 5. Initiate appropriate ICU prophylaxis. 6. Remainder of medical care per cardiology recommendations. IMPRESSIONS: 1. Acute hypoxemic respiratory failure status post [id number] V-fib cardiac arrest with successful ROSC The patient was ultimately taken for cardiac catheterization with PCI of the proximal RCA with drug-eluting stent placement. The patient was transferred to the medical intensive care unit postprocedure, where he will remain intubated. The patient will be continued on assist-control mode of mechanical ventilation, with a goal to wean FiO2 and PEEP to maintain saturations at or above 90%. Will obtain follow-up ABG and sputum for culture. In the interim, recommend minimizing sedatives to better assess baseline neurologic status. The patient will be initiated on appropriate ICU prophylaxis. Remainder of medical care per cardiology recommendations. 2. Acute versus chronic kidney disease Unclear baseline. Will continue to monitor urine output for now. No current indication for renal replacement therapy. 3. Mild transaminitis Likely related to presenting arrest. Continue to monitor liver function profile for now. 4. Questionable sleep apnea/hypertension/obesity Complicates care, management, recovery and prognosis. Continue supportive measures as noted above. TIME: 36 minutes of critical care time, independent of procedures, was spent addressing the patient's acute hypoxemic respiratory failure status post V-fib cardiac arrest, acute versus chronic kidney disease, review of all data and collaboration with the care team. HPI Consult Data Date of Consult: 08/05/24 HPI Narrative Reason for Consultation: Acute respiratory failure status postcardiac arrest HPI Narrative: The patient is a 74-year-old male, with a history as outlined below, who presented to the emergency department on the morning of August 05 as a witnessed [id number] V-fib cardiac arrest. CPR was initiated by the patient's spouse until EMS arrival. The patient received ACLS per protocol with defibrillation and epinephrine. ROSC was ultimately achieved. The patient has a known history of hypertension and obesity, at his baseline. It appears that the patient had an abnormal cardiac calcium score on imaging. Therefore, echocardiogram and stress test were completed. The patient's exercise stress test completed in May 2024 demonstrated no evidence of significant ischemia or infarction. Upon arrival to the emergency department, the patient's LMA was removed and an endotracheal tube was placed. The patient was evaluated by cardiology. The patient was noted to have an elevated white blood cell count of 22,000. Coagulation profile was unremarkable. Arterial blood gas obtained on assist- control demonstrated a pH of 7.32 with a pCO2 of 38 and pO2 of 112. Chemistry profile was notable for a bicarbonate of 18 and creatinine of 1.45. Lactate was elevated at 6.5. Troponin was increased at 12,768. CT head revealed no acute intracranial abnormality. The patient was subsequently taken to the cardiac catheterization lab where he underwent PCI of the proximal RCA with drug-eluting stent placement. Postprocedure, the patient was transferred to the medical intensive care unit for ongoing management. REPLACED BY [facility] Medical History CAD (coronary artery disease), picayune coronary artery Tobacco abuse Thoracic ascending aortic aneurysm Allergic rhinitis Sinusitis Hyperlipemia Actinic keratitis Hypertension Hyperglycemia Home Medications ?Medication ?Instructions ?Recorded ?Last Taken ?Type amlodipine 5 mg tablet (Norvasc) 5 mg PO QDAY 07/01/24 Unknown History multivitamin 1 tab PO QDAY 07/01/24 Unknown History sildenafil 100 mg tablet 100 mg PO 3XW PRN 07/01/24 Unknown History Allergy/AdvReac Type Severity Reaction Status Date / Time No Known Allergies Allergy Verified 08/05/24 07:06 Family History (Updated 08/05/24 @ 09:48 by Yamileth MENARD, PA) Mother Heart disease Hypertension Family History unable to obtain Surgical History (Updated 08/05/24 @ 12:26 by Magdaleno Pritchard SUPERVISOR PROP MAKING, SUPERVISOR PROP MAKING-C) S/P coronary artery stent placement Social History Smoking Status: Current some day smoker tobacco type: cigarettes Tobacco: How many years used: 20 quit status: considering quitting ROS Review of Systems ROS Unobtainable: due to endotracheal tube and due to mental status Physical Exam Const Constitutional Narrative: Intubated, sedated and mechanically ventilated. No ventilator dyssynchrony. HEENT normocephalic and head/scalp atraumatic Mouth: endotracheal tube in place and OG tube in place Eyes conjunctivae normal and no scleral icterus Neck supple General: trachea midline Chest inspection of chest normal Resp Auscultation: Negative for rales, rhonchi or wheezes Cardio regular rate and regular rhythm GI normal to inspection, nondistended, normoactive bowel sounds Extremity no clubbing, cyanosis or edema Skin no rashes or lesions noted Neuro Sensorium / Orientation: sedated on vent Lab / Micro Data 08/05/24 07:31 08/05/24 07:31 Labs: Laboratory Results - last 24 hr 08/05/24 07:22: Urine Color Yellow, Urine Clarity Sl. Cloudy, Urine pH 7.0, Ur Specific Rogers 1.010, Urine Protein 500 H, Urine Glucose (UA) 1000 H, Urine Ketones Negative, Urine Occult Blood 250 H, Urine Nitrite Negative, Urine Bilirubin Negative, Urine Urobilinogen Normal, Ur Leukocyte Esterase Negative, Urine RBC 50-100 SEEN, Urine WBC 0 SEEN, Ur Squamous Epith Cells 0 SEEN, Urine Bacteria 0 SEEN, Urine Mucus 0 SEEN 08/05/24 07:26: Lactic Acid 6.5 H* 08/05/24 07:31: WBC 22.2 H, RBC 4.70, Hgb 15.7, Hct 47.0, MCV 100.0 H, MCH 33.4 H, MCHC 33.4, RDW Std Deviation 49.6 H, RDW Coeff of Cecilio 13.3, Plt Count 237, MPV 9.9, Neut % (Auto) Not Reportable, Absolute Neuts (auto) 17.3 H, Absolute Lymphs (auto) 3.77, Total Counted 100, Neutrophils % (Manual) 75 H, Band Neutrophils % 3, Lymphocytes % (Manual) 17 L, Monocytes % (Manual) 1, Eosinophils % (Manual) 2, Metamyelocytes % 2 H, Diff Path Review May foll, Platelet Estimate ADEQUATE, RBC Morphology NORM C+C, Polychromasia 1+, PT Cancelled 08/05/24 07:31: PT Cancelled, INR Cancelled 08/05/24 07:31: INR Cancelled, APTT Cancelled 08/05/24 07:31: APTT Cancelled, Sodium 137, Potassium 4.0, Chloride 104, Carbon Dioxide 18.0 L, Anion Gap 15, BUN 13, Creatinine 1.45 H, Estim Creat Clear Calc 60.20, Est GFR (MDRD) Af Amer 61, Est GFR (MDRD) Non-Af 51 L, BUN/Creatinine Ratio 9.0 L, Glucose 322 H, Calcium 9.0, Total Bilirubin 0.60, AST 135 H, ALT 70 H, Alkaline Phosphatase 124 H, Total Creatine Kinase 755 H, Troponin I High Sens 48736 H*, Total Protein 6.4, Albumin 3.2, Globulin 3.2, Albumin/Globulin Ratio 1.0, Triglycerides 127 08/05/24 08:06: PT 14.6, INR 1.1, APTT 25.3 08/05/24 08:27: Activated Clotting Time 207 H 08/05/24 08:57: Activated Clotting Time 269 H 08/05/24 11:27: POC Glucose 132 H Micro: Microbiology 08/05/24 07:26 Mucosa - Nose Coronavirus COVID-19 PCR - Final ABG Data ABG results: ABG 08/05/24 10:06 Specimen Type ART Sample Site Art Line pH 7.32 L Bicarbonate Actual 20.0 L Total CO2 21 Base Excess -6 L O2 Saturation 98 O2 % 40.0 ABG pCO2 38.8 ABG pO2 112 H Respiration Rate 16 O2 Delivery Device Adult Vent Vent Mode AC Tidal Volume 500.0 POC PEEP 5 Imaging Radiology Impression Brain CT 08/05/24 07:16 IMPRESSION: 1. No acute intracranial abnormality. 2. Chronic microvascular changes. Electronically Signed: Flo Eng MD at 8:14 EST , KUB X-Ray 08/05/24 07:17 IMPRESSION: 1. Enteric tube extends into the stomach. 2. Visualized portions of the large bowel are distended suggesting ileus. Electronically Signed: Flo Eng MD at 8:16 EST , Chest X-Ray 08/05/24 07:21 IMPRESSION: Tip of the ET tube is 4.8 cm above the berry. Electronically Signed: Flo Eng MD at 8:15 EST , Charges/Coding Procedures Hospitalists Procedures: [id number] Critical Care 1st Hr
--- NOTE | 2024-08-05 13:15 | NURSING ---
Patient arrived from corn lab technician with propofol running at 25 mcg/kg/min. labels molder staffed stated propofol needed increased during case, as well as versed 2mg IV x1. Patient RASS -4 when arrived to ICU. Due to sheath being pulled at 1006 and pressure held until 1036 when hemostasis was maintained, propofol not adjusted. Patient remained flat until 1136 per protocol post sheath orders. Started weaning propofol at 1130. At 1150, patient began myoclonic jerking movements with eyes rolled upward. Propofol paused at [address] Latham made aware and at bedside at 1300. EEG ordered and Dr. Latham spoke with Dr. Zendejas.
[2024-08-05] MEDS: Amiodarone 360 MG in Dextrose 5% Viaflo Bag 192.8 ML 16.7 MG CONT INF (14:11)
--- NOTE | 2024-08-05 14:26 | CASEMGMT ---
CODY OSORIO ASSESSMENT Pt currently intubated. CODY OSORIO met w/,?introduced self and role at [facility]. voices understanding and consents to assessment?at this time. Care providers, pharmacy, and demographics verified/updated at this time. PCP: Dr aDvis Specialists: none Preferred Pharmacy: [facility] Retail @ discharge. Insurance: MCR, MMO Prescription Benefit: yes Living Will/HPOA: states she is pretty sure pt has done LW and HCPOA. She will bring in the documents to be placed on pt's chart if she is able to locate them. LNOK: , Paula. Son, Cale. Living Arrangements: Lives w/ in 2-story home w/2 small steps to enter. Bathroom and bedroom on 2nd floor, 1/2 bath on main floor. Independent. Works part-time in sales. Transportation:?Pt and both drive. DME: Pt uses no DME HHC/SNF: No hx PLAN: TBD by course of treatment and progress w/therapy. Follow for anti-coag. Pt currently on Brilinta. Tacos MCCOY RN, CM
--- NOTE | 2024-08-05 14:30 | NURSING ---
ice packs placed at this time
--- NOTE | 2024-08-05 15:04 | CHAPLAIN ---
Type of Pastoral Visit _x_ Initial Visit ___ Follow-up Visit ___ On-call Visit ___ General Patient Visit ___ Spiritual Assessment ___ Family Conference ___ Bereavement ___ Rapid Response ___ Code Blue ___ Other (describe below) Pastoral Care Referral From ___ Patient _x__ Family _x__ Nurse ___ Physician ___ Ict Teacher ___ Head And Neck Surgeon ___ Other (describe below) Sacrament/Intervention _x__ Active listening ___ Anointing ___ Denominational ___ Bereavement ___ Communion ___ Dilcia exploration ___ ___ Life review _x__ Prayer ___ Reconciliation ___ Sacrament of Sick _x__ Supportive presence ___ Wedding ___ Other (describe below) Pastoral Comments met several family members in the waiting room as patient was receiving care from the staff; pt is intubated after a surprise heart attack earlier today; pt was raised in the [employer]ite dilcia but he is not active in the muslim; family members talk about the experience; offer of presence and support; family welcomes the prayers and concern
[2024-08-05] MEDS: Propofol 10MG/Ml 1,000 MG/100 ML Bottle 3.8 MG CONT INF (15:57)
[2024-08-05 16:45] LABS: Lactic Acid 3.3 mmol/L (0.4-1.9)
--- NOTE | 2024-08-05 17:09 | EEG_ITS ---
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 Primary team and direct chill caster has been notified. Official EEG report will be scanned tomorrow.
--- NOTE | 2024-08-05 17:09 | NEURO.EEG ---
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 Primary team and automotive customer experience advisor has been notified. Official EEG report will be scanned tomorrow.
[2024-08-05] MEDS: LORazepam 2 MG/ML Syringe IV (17:22)
[2024-08-05] MEDS: levETIRAcetam IV 1,000 MG/100 ML BAG 400 MG IV ×2 (17:30→21:47)
[2024-08-05] MEDS: Acetaminophen 650 MG Suppository RC ×2 (17:30→21:34)
[2024-08-05] MEDS: levETIRAcetam IV 2,000 MG in 0.9% Normal Saline (250mL Bag) 230 ML 1000 MG IV (17:31)
--- NOTE | 2024-08-05 17:48 | PCM.HOSP.N ---
Hospitalist Note Earlier patient noted to have some myoclonic jerking after the propofol was turned off, ordered EEG which was read as myoclonic status epilepticus. Neurology recommended loading with Keppra 3 g and starting 1 g twice daily and 2 mg Ativan stat and starting on propofol. These orders were entered. Discussed with patient's nurse at bedside, also discussed with patient's . Discussed further with neurology and recommended repeating EEG tomorrow and if still having seizure activity was recommended to consider transfer at that time. Also discussed patient's temperature with patient's RN and the goal is her normothermia, he already had ice packs in place and a cooling blanket was actively being obtained, also has rectal Tylenol with goal of normothermia
[2024-08-05 17:56] LABS: Bedside Glucose 144 mg/dL (74-106)
[2024-08-05 18:00] LABS: Magnesium 2.4 mg/dL (1.6-2.6)
[2024-08-05] MEDS: 0.9% Saline Lock 10 ML Syringe IV (21:50)
[2024-08-05 23:32] LABS: Bedside Glucose 134 mg/dL (74-106)
[2024-08-06] VITALS (24 sets, daily range): BP systolic 97–147; BP diastolic 63–84; PULSE 73–85; RESP 16–37; TEMP 37.3–38.5; O2SAT 84–98; BMI 33.0
[2024-08-06] MEDS: Amiodarone 360 MG in Dextrose 5% Viaflo Bag 192.8 ML 16.7 MG CONT INF (02:14)
[2024-08-06] MEDS: 0.9% Saline Lock 10 ML Syringe IV (03:22)
[2024-08-06] MEDS: Propofol 10MG/Ml 1,000 MG/100 ML Bottle 7.5 MG CONT INF ×2 (03:22→11:12)
[2024-08-06] MEDS: Acetaminophen 650 MG Suppository RC (04:37)
[2024-08-06] MEDS: CHLORHEXIDINE GLUC 2% CLOTH 1 EACH TOWELETTE TOPICAL (04:37)
[2024-08-06 04:49] LABS: Absolute Lymphocyte Count 2.34 X10^3/uL (0.83-4.51); Absolute Neutrophil Count 18.4 X10^3/uL (2.0-7.7); Basophil# 0.06 X10^3/uL; Basophil% 0.3 % (0-1); Hematocrit 44.1 % (40-54); Hemoglobin 15.1 g/dL (13.0-16.5); Lymphocyte # 2.34 X10^3/ul (0.83-4.51); Lymphocyte % 10.4 % (19-41); Mean Corp Hgb Conc 34.2 g/dL (32-36); Mean Corpuscular Hgb 33.2 pg (27.0-32.0); Mean Corpuscular Volume 96.9 fL (80-94); Mean Platelet Vol. 10.2 fl (6.2-12.0); Monocyte# 1.55 X10^3/uL; Monocyte% 6.9 % (0-10); NRBC Flagged by Analyzer 0 % (0-5); Neutrophil # 18.38 X10^3/uL (2.7-7.7); Neutrophil % 81.8 % (47-70); POSITIVE DIFFERENTIAL YES; Platelet Count 204 K/mm3 (150-450); RBC Distribution Width CV 13.9 % (11.6-14.6); RBC Distribution Width SD 49.4 fl (35.1-43.9); Red Blood Count 4.55 M/mm3 (4.6-6.2); White Blood Count 22.5 K/mm3 (4.4-11.0)
[2024-08-06 04:54] LABS: Bedside Glucose 130 mg/dL (74-106)
[2024-08-06] MEDS: LORazepam 2 MG/ML Syringe IV (04:55)
[2024-08-06 05:04] LABS: International Normalized Ratio 1.2; Prothrombin Time (Protime)PT. 14.7 SECONDS (11.7-14.9)
[2024-08-06 05:12] LABS: Differential Indicated SCAN CRITERIA MET
--- NOTE | 2024-08-06 05:13 | EKG12_ITS ---
Test Reason : AM EKG Blood Pressure : */* mmHG Vent. Rate : 83 BPM Atrial Rate : 83 BPM P-R Int : 154 ms QRS Dur : 98 ms QT Int : 438 ms P-R-T Axes : 48 26 96 degrees QTcB Int : 514 ms Normal sinus rhythm ST & T wave abnormality, consider lateral ischemia Abnormal ECG When compared with ECG of 05-Aug-2024 10:11, MANUAL COMPARISON REQUIRED DATA IS UNCONFIRMED Confirmed by LOUIE DAVIS ([id number]), editorial specialist TONIA VARELA ([id number]) on 08/09/2024 6:16:03 AM Referred By: Logan Escoto Confirmed By: LOUIE DAVIS
[2024-08-06 05:26] LABS: AST(SGOT) 181 U/L (15-37); Alanine Aminotransfer ALT/SGPT 81 U/L (16-61); Albumin, Serum 3.1 g/dL (3.2-5.0); Alkaline Phosphatase 89 U/L (45-117); Anion Gap 9 (5-15); BUN 28 mg/dL (7-18); BUN/Creat Ratio 19.3 RATIO (10-20); Calcium,Total 8.3 mg/dL (8.5-10.1); Chloride 107 mmol/L (98-107); Creatinine, Serum 1.45 mg/dL (0.70-1.30); EST Glomerular Filtration Rate 51 mL/min (>60); Est Glom Filt Rate - Afr Amer 61 mL/min (>60); Globulin 3.2 g/dL (2.2-4.2); Glucose 135 mg/dL (74-106); Magnesium 2.2 mg/dL (1.6-2.6); Potassium 3.4 mmol/L (3.5-5.1); Protein, Total 6.3 g/dL (6.4-8.2); Sodium Level 138 mmol/L (136-145); Thyroid Stim Hormone (TSH) 0.362 uIU/mL (0.358-3.740)
[2024-08-06] MEDS: LORazepam 2 MG/ML Syringe 6 MG IV (05:32)
[2024-08-06 07:11] LABS: Differential Comment SCANNED; Platelet Estimate ADEQUATE (ADEQ); Red Cell Morphology NORM C+C NORMAL (NORM C&C)
--- NOTE | 2024-08-06 08:24 | CASEMGMT ---
RN CM NOTE: Pt has traditional MCR and can be transferred to tertiary facility of choice. Tacos LAZCANON RN CM
--- NOTE | 2024-08-06 08:40 | PN.CC_ITS ---
Assessment & Plan Assessment/Plan (1) Cardiac arrest with ventricular fibrillation: PLAN: Plan RECOMMENDATIONS: 1. Continue assist-control mode mechanical ventilation. Wean FiO2 and PEEP as tolerated. 2. Await results of follow-up EEG from this morning. 3. Continue Keppra along with propofol for sedation. 4. Continue appropriate ICU prophylaxis. 5. Recommend transfer to tertiary care facility with neuro ICU capabilities IMPRESSIONS: 1. Acute hypoxemic respiratory failure status post [id number] V-fib cardiac arrest with successful ROSC The patient was ultimately taken for cardiac catheterization with PCI of the proximal RCA with drug-eluting stent placement. The patient was transferred to the medical intensive care unit postprocedure, where he will remain intubated. The patient will be continued on assist-control mode of mechanical ventilation, with a goal to wean FiO2 and PEEP to maintain saturations at or above 90%. The patient will be continued on appropriate ICU prophylaxis. Remainder of medical care per cardiology recommendations. 2. Encephalopathy Clinical concern for underlying anoxic brain injury. The patient developed postarrest myoclonic status epilepticus following cardiac intervention. He was subsequently loaded with Keppra and initiated on propofol. Repeat EEG was completed this morning with read pending. However, in light of the patient's family's request to continue aggressive measures, I would recommend that the patient be transferred to a neuro intensive care unit with continuous EEG capabilities. 3. Acute versus chronic kidney disease Unclear baseline. Will continue to monitor urine output for now. No current indication for renal replacement therapy. 4. Questionable sleep apnea/hypertension/obesity Complicates care, management, recovery and prognosis. Continue supportive measures as noted above. TIME: 33 minutes of critical care time, independent of procedures, was spent addressing the patient's acute hypoxemic respiratory failure status post V-fib cardiac arrest, acute versus chronic kidney disease, review of all data and collaboration with the care team. Subjective Subjective The patient was seen and examined at the bedside this morning. Events from the last 24 hours have been reviewed. The patient is currently afebrile, hemodynamically stable and maintaining appropriate oxygen saturations on assist- control mode mechanical ventilation with an FiO2 requirement of 50%. Overnight, the patient continued to have seizure-like activity and was treated with additional benzodiazepines. Repeat EEG was completed this morning. I did communicate with neurology yesterday after the patient's EEG demonstrated post arrest myoclonic status epilepticus, for which the patient was started on Keppra and propofol. This morning, the patient is not demonstrating any clinical seizure activity. He does have a gag and pupillary reflexes and is overbreathing the set rate on the ventilator. I did meet personally with the patient's family at the bedside, who indicated their wishes to proceed with aggressive measures. White blood cell count is elevated at 22,000. Potassium is low at 3.4 with a creatinine of 1.45. Objective Data Objective Data The patient's most recent lab work, culture data and imaging studies have all been personally reviewed. Surface echocardiogram completed on August 05 demonstrated severe global LV systolic dysfunction with an ejection fraction of 25%. Blood and sputum cultures are currently pending. Vital Signs: Vital Signs Temp Pulse Resp BP Pulse Ox O2 Del Method O2 Flow Rate 99.1 F 74 18 127/77 H 98 Mechanical Ventilator 15 08/06/24 08:00 08/06/24 08:00 08/06/24 08:00 08/06/24 08:00 08/06/24 08:00 08/06/24 08:00 08/05/24 07:06 FiO2 75 08/06/24 08:00 Oxygen Flow Rate (L/min) 15 Oxygen Delivery Method Mechanical Ventilator Weight: 243 lb 3.2 oz Body Mass Index (BMI) 33.0 Intake & Output: Intake and Output for Last 24 Hours 08/04/24 08/05/24 08/06/24 23:59 23:59 23:59 Intake Total 1810.14 / 1877.64 451.59 / 451.59 Output Total 1250 / 1250 480 / 480 Balance 560.14 / 627.64 -28.41 / -28.41 Lab / Micro Data Attestation: I reviewed the patient's lab results. 08/06/24 04:30 08/06/24 04:30 Labs: Laboratory Results - last 24 hr 08/05/24 07:31: Absolute Neuts (auto) 17.3 H, Absolute Lymphs (auto) 3.77, Total Counted 100, Neutrophils % (Manual) 75 H, Band Neutrophils % 3, Lymphocytes % (Manual) 17 L, Monocytes % (Manual) 1, Eosinophils % (Manual) 2, Metamyelocytes % 2 H, Diff Path Review January, Platelet Estimate ADEQUATE, RBC Morphology NORM C+C, Polychromasia 1+, Magnesium 2.4 08/05/24 08:27: Activated Clotting Time 207 H 08/05/24 08:57: Activated Clotting Time 269 H 08/05/24 11:27: POC Glucose 132 H 08/05/24 15:50: Lactic Acid 3.3 H* 08/05/24 17:25: POC Glucose 144 H 08/05/24 23:14: POC Glucose 134 H 08/06/24 04:30: WBC 22.5 H, RBC 4.55 L, Hgb 15.1, Hct 44.1, MCV 96.9 H, MCH 33.2 H, MCHC 34.2, RDW Std Deviation 49.4 H, RDW Coeff of Cecilio 13.9, Plt Count 204, MPV 10.2, Immature Gran % (Auto) 0.600, Neut % (Auto) 81.8 H, Lymph % (Auto) 10.4 L, [place] % (Auto) 6.9, Eos % (Auto) 0.0, Baso % (Auto) 0.3, Absolute Neuts (auto) 18.4 H, Absolute Lymphs (auto) 2.34, Nucleated RBC % 0, Differential Comment SCANNED, Diff Path Review May foll, Platelet Estimate ADEQUATE, RBC Morphology NORM C+C, PT 14.7, INR 1.2, Sodium 138, Potassium 3.4 L, Chloride 107, Carbon Dioxide 22.0, Anion Gap 9, BUN 28 H, Creatinine 1.45 H, Estim Creat Clear Calc 58.20, Est GFR (MDRD) Af Amer 61, Est GFR (MDRD) Non-Af 51 L, BUN/Creatinine Ratio 19.3, Glucose 135 H, Calcium 8.3 L, Magnesium 2.2, Total Bilirubin 0.90, AST 181 H, ALT 81 H, Alkaline Phosphatase 89, Total Protein 6.3 L, Albumin 3.1 L, Globulin 3.2, Albumin/Globulin Ratio 1.0, TSH 0.362 08/06/24 04:33: POC Glucose 130 H Micro: Microbiology 08/05/24 10:06 Sputum, Induced/Lukens Gram Stain - Final 08/05/24 10:06 Mucosa - Nasopharyngeal Respiratory Panel (PCR) - Final 08/05/24 07:26 Mucosa - Nose Coronavirus COVID-19 PCR - Final ABG Data ABG results: ABG 08/05/24 10:06 Specimen Type ART Sample Site Art Line pH 7.32 L Bicarbonate Actual 20.0 L Total CO2 21 Base Excess -6 L O2 Saturation 98 O2 % 40.0 ABG pCO2 38.8 ABG pO2 112 H Respiration Rate 16 O2 Delivery Device Adult Vent Vent Mode AC Tidal Volume 500.0 POC PEEP 5 Radiography Diagnostic Testing: Radiology Impression Echocardiogram 08/05/24 09:41 Interpretation Summary The estimated ejection fraction is 25 %. Severe global left ventricular systolic dysfunction. There is Mild focal posterior mitral annular calcification. Mild focal aortic valve thickening. The study was technically difficult. Contrast injection was performed. Ordering Physician: Mila Latham Referring Physician: Shabnam Davis M.D. Performed By: Alf Post RCS Physical Exam Const Constitutional Narrative: Intubated, sedated and mechanically ventilated. No ventilator dyssynchrony. HEENT normocephalic and head/scalp atraumatic Mouth: endotracheal tube in place and OG tube in place Eyes PERRL, conjunctivae normal and no scleral icterus Neck supple General: trachea midline Chest inspection of chest normal Resp Effort and Inspection: tachypneic Auscultation: Negative for rales, rhonchi or wheezes Cardio regular rate and regular rhythm GI normal to inspection, nondistended, normoactive bowel sounds Extremity no clubbing, cyanosis or edema Skin no rashes or lesions noted Neuro Neuro Narrative: The patient is currently overbreathing the set rate on the ventilator. He does have a gag and pupillary reflexes. He is not currently demonstrating any clinical seizure activity. Charges/Coding Procedures Hospitalists Procedures: 82518 Critical Care 1st Hr
[2024-08-06 08:41] LABS: Pathologist Review Reviewed
[2024-08-06] MEDS: Pantoprazole Sodium 40 MG in 0.9% Normal Saline (100mL MB+) 100 ML 330 MG IV (08:48)
[2024-08-06] MEDS: levETIRAcetam IV 1,000 MG/100 ML BAG 400 MG IV (09:11)
[2024-08-06] MEDS: Aspirin 81 MG TAB.CHEW GT (09:12)
[2024-08-06] MEDS: Chlorhexidine 15 ML PO (09:12)
[2024-08-06 09:27] LABS: Hemoglobin A1c 5.6 % (3.8-5.6)
--- NOTE | 2024-08-06 10:00 | EKG12_ITS ---
Test Reason : post cath Blood Pressure : */* mmHG Vent. Rate : 87 BPM Atrial Rate : 87 BPM P-R Int : 162 ms QRS Dur : 94 ms QT Int : 416 ms P-R-T Axes : 52 30 59 degrees QTcB Int : 500 ms Normal sinus rhythm Prolonged QT Abnormal ECG When compared with ECG of 05-Aug-2024 07:08, MANUAL COMPARISON REQUIRED DATA IS UNCONFIRMED Confirmed by LOUIE DAVIS ([id number]), manager editorial TONIA VARELA ([id number]) on 08/06/2024 1:46:16 PM Referred By: Logan Escoto Confirmed By: LOUIE DAVIS
--- NOTE | 2024-08-06 11:37 | PCM.DC.SUM ---
Providers Date of Admission: 08/05/24 Date of Discharge: 08/06/24 Primary Care Physician: Dr. Shabnam Davis, DO Consultations 08/05/24 09:41 Consult: [facility] Supervisor / Pulmonary Medicine Routine Consulting Provider: [facility] Reason for Consult: vfib arrest EMERGENT Consult: No MD Notified: Yes Date Notified: 08/05/24 Time Notified: 08:06 Method of Notification: Verbal Reason For Visit: UNRESPONSIVE, VFIB ARREST Diagnosis Discharge Diagnosis (1) Cardiac arrest with ventricular fibrillation: Status: Acute Code(s): I46.9 - Cardiac arrest, cause unspecified; I49.01 - Ventricular fibrillation Plan # [id number] V-fib arrest # Coronary artery disease with stenting of dominant RCA # Acute respiratory failure secondary to V-fib arrest # Myoclonic status epilepticus # Hyperglycemia # CHE versus CKD # Elevated liver function tests # Leukocytosis # Possible ileus Medications at Discharge Home Medications amlodipine 5 mg tablet (Norvasc) 5 mg PO QDAY 07/01/24 multivitamin 1 tab PO QDAY 07/01/24 sildenafil 100 mg tablet 100 mg PO 3XW PRN 07/01/24 Hospital Course Procedures - (EEG, heart cath w/ stent, intubation) Summary of Care Provided Minutes Spent on Discharge: 34 Hospital Course: CIELO OLVERA, is a 74 M with a history of hypertension and suspected sleep apnea who presented [facility] ED 08/05/2024 after his found him unresponsive. Patient sleep in separate rooms as patient snores, patient's woke up early in the morning and when she walked into the room noticed his snoring was stiffer than usual, she went and he was unresponsive, she called EMS and started CPR. EMS arrived and patient was defibrillated several times and received several doses of epinephrine with ROSC. He arrived in the ED and was intubated and initially as a STEMI call however cardiology reviewed and did not think it was STEMI but given his V-fib arrest he was taken immediately to the [facility] and found to have 99% stenosis of a dominant RCA and a flush occlusion of diagonal branch with a moderate size LAD. Echo showed global hypokinesis with EF in the range of 25%. Patient admitted to ICU for further management. Later in the day of admission once sedation weaned it was noted he was having myoclonic jerking, initially intermittent but became more frequent, EEG read by teleneurologist and showed myoclonic status epilepticus, 3 g Keppra, 2 mg of IV Ativan and 1 g Keppra twice daily as well as resuming propofol drip was recommended. These measures were in place and it was advised to repeat EEG in the morning and if patient still has any seizure activity would need transferred. Overnight patient had breakthrough seizure activity and was given a total of 8 g of Ativan. Discussed with teleneurology before repeat EEG was back and given the breakthrough seizures overnight it was recommended he be transferred. Patient's family agreeable. Patient accepted to [facility] and was transferred there for continuous EEG and further management. Physical Exam Narrative General: Intubated and sedated HEENT: Atraumatic, normocephalic Eyes: Eyes closed, no spontaneous opening Neck: Supple Respiratory: Mechanically ventilated Cardiovascular: Regular rate and rhythm GI: Soft, nontender, nondistended Extremities: No edema Musculoskeletal: Presently sedated and not moving extremities spontaneously Neuro: Unable to participate in neuro exam secondary to intubated and sedated, not having myoclonic jerks at time of exam today Skin: No rashes appreciated Psych: Unable to cooperate secondary to intubated and sedated Weight / BMI Weight Weight: 110.314 kg Body Mass Index (BMI) 33.0 ABG / Lab / Microbiology Data 08/06/24 04:30 08/06/24 04:30 Laboratory: Laboratory Results - last 24 hr 08/05/24 07:31: Diff Path Review Reviewed, Magnesium 2.4 08/05/24 11:27: POC Glucose 132 H 08/05/24 15:50: Lactic Acid 3.3 H* 08/05/24 17:25: POC Glucose 144 H 08/05/24 23:14: POC Glucose 134 H 08/06/24 04:30: WBC 22.5 H, RBC 4.55 L, Hgb 15.1, Hct 44.1, MCV 96.9 H, MCH 33.2 H, MCHC 34.2, RDW Std Deviation 49.4 H, RDW Coeff of Cecilio 13.9, Plt Count 204, MPV 10.2, Immature Gran % (Auto) 0.600, Neut % (Auto) 81.8 H, Lymph % (Auto) 10.4 L, [place] % (Auto) 6.9, Eos % (Auto) 0.0, Baso % (Auto) 0.3, Absolute Neuts (auto) 18.4 H, Absolute Lymphs (auto) 2.34, Nucleated RBC % 0, Differential Comment SCANNED, Diff Path Review May foll, Platelet Estimate ADEQUATE, RBC Morphology NORM C+C, PT 14.7, INR 1.2, Sodium 138, Potassium 3.4 L, Chloride 107, Carbon Dioxide 22.0, Anion Gap 9, BUN 28 H, Creatinine 1.45 H, Estim Creat Clear Calc 58.20, Est GFR (MDRD) Af Amer 61, Est GFR (MDRD) Non-Af 51 L, BUN/Creatinine Ratio 19.3, Glucose 135 H, Hemoglobin A1c 5.6, Calcium 8.3 L, Magnesium 2.2, Total Bilirubin 0.90, AST 181 H, ALT 81 H, Alkaline Phosphatase 89, Total Protein 6.3 L, Albumin 3.1 L, Globulin 3.2, Albumin/Globulin Ratio 1.0, TSH 0.362 08/06/24 04:33: POC Glucose 130 H Microbiology: Microbiology 08/05/24 10:06 Sputum, Induced/Lukens Gram Stain - Final 08/05/24 10:06 Mucosa - Nasopharyngeal Respiratory Panel (PCR) - Final 08/05/24 07:26 Mucosa - Nose Coronavirus COVID-19 PCR - Final Radiography Diagnostic Testing: Radiology Impression Echocardiogram 08/05/24 09:41 Interpretation Summary The estimated ejection fraction is 25 %. Severe global left ventricular systolic dysfunction. There is Mild focal posterior mitral annular calcification. Mild focal aortic valve thickening. The study was technically difficult. Contrast injection was performed. Ordering Physician: Mila Latham Referring Physician: Shabnam Dvais M.D. Performed By: Alf Post RCS D/C Instructions DC O2, CPAP, BIPAP Needs PSN CPAP & BiPAP: BiPAP & CPAP Settings per PSN Fraction of Inspired Oxygen ( 50 08/06/24 10:00 FIO2) Additional Home O2 Discharge instructions: No DC home with Oxygen: No Meaningful Use Info Meaningful Use Meaningful Use Diagnoses (Choose all that apply): AMI AMI/Post PCI/Angioplasty Aspirin given w/in 24hrs of arrival?: Yes ASA at discharge?: Yes Antiplatelet Therapy at Discharge:: Yes Statins at discharge?: Yes Sunday/ARB at discharge?: No Reason Sunday/ARB not ordered:: Worsening renal dysfunctn Beta Karyna at discharge?: No Reason Beta Karyna not ordered:: Drug Interaction (Pt with new reduced EF/low cardiac output) Done w/ Acute DC measure.: Yes Documented LVEF (%): 25 Ischemic Stroke Statin Dosing Therapy Reference: STATIN DOSE THERAPY REFERENCE: * Patients > 75 years receive moderate or high dose statin therapy. * Patients 75 years or YOUNGER should receive HIGH intensity statin dose unless contraindicated. You will be required to document reason for non-treatment if statin daily dose does not meet guidelines. HIGH DOSE STATIN THERAPY DAILY Atorvastatin > than or = to 40 mg Rosuvastatin > than or = to 20 mg Amlodipine + Atorvastatin > than or = to 2.5/40 mg Ezetimibe + Simvastatin 10/80 mg Simvastatin 80mg Discharge Plan Admission Admit Date/Time: 08/05/24 08:04 Primary Reason for Your Visit: cardiac arrest Attending Provider: Mila Latham Primary Care Provider: Shabnam Davis Consulting Providers: Tohmas Lyons; Frank Brown; Douglas Price; Wade Zendejas; David Metzger; Levon Branch; Nick Velasco; Sri Darnell; Ron Damian; Nolan Duran; Ember Guerrero; Shady Morrison; Fatmata,Aiden; Edwardo Seals; Chuck Streeter; Kenny Johnson; Marichuy Hardwick; Ottoniel Dixon; Umair Mancuso; Gavino Carvajal; Justen Palmer; Megan Begum NP; Xiomara Romo; Suzanne Ferrera; Lady Spears; Priti Boogie; Chacorta Garibay; Ty Camp; Austyn Parmar; OBI PEREIRA; Lani Jane; China Mejía; Yash Vitale; Nabila Byrd Discharge Orders/Prescriptions Prescriptions: No Action amlodipine [Norvasc] 5 mg tablet 5 mg PO QDAY sildenafil 100 mg tablet 100 mg PO 3XW PRN Rx Instructions: administer 30 minutes to 4 hours before activity multivitamin Tablet 1 tab PO QDAY Referrals / Follow Up: Shabnam Davis DO [Primary Care Provider] - Disposition Disposition (needs filled in before D/C Order can be placed): Acute Care Hospital Charges/Coding Visit Charges Inpatient E&M: 41127 Disch Hosp >30min
[2024-08-06 11:55] LABS: Bedside Glucose 93 mg/dL (74-106)
--- NOTE | 2024-08-06 13:09 | CHAPLAIN ---
Type of Pastoral Visit ___ Initial Visit _x__ Follow-up Visit ___ On-call Visit ___ General Patient Visit ___ Spiritual Assessment ___ Family Conference ___ Bereavement ___ Rapid Response ___ Code Blue ___ Other (describe below) Pastoral Care Referral From ___ Patient ___ Family _x__ Nurse ___ Physician ___ Computer Analyst ___ Burlap Bag Sewer ___ Other (describe below) Sacrament/Intervention _x__ Active listening ___ Anointing ___ Denominational ___ Bereavement ___ Communion ___ Dilcia exploration ___ ___ Life review ___ Prayer ___ Reconciliation ___ Sacrament of Sick _x__ Supportive presence ___ Wedding ___ Other (describe below) Pastoral Comments many family members have gathered in the patient's room; RN states that patient is be to transferred today to [facility]; offer of support to the family as patient is still on the vent; several members interact and express how they are handling the situation; family focuses on hope of 'waking up' and being back to his active self
[2024-08-06 13:18] LABS: Pathologist Review Reviewed
[2024-08-06] MEDS: Propofol 10MG/Ml 1,000 MG/100 ML Bottle 22.5 MG CONT INF (14:39)
== END 2024-08-06 15:40 | disposition short-term general hospital (02) | DRG 321 ==
LOC: ED 08:14 → ICU 08:26
PROVIDERS: Internal Medicine Interventional Cardiology; Admitting Provider Internal Medicine; Emergency Provider Emergency Medicine; PCP Internal Medicine; Referring Provider Specialist; Visit Provider Internal Medicine
DX: I46.9 Cardiac arrest, cause unspecified (principal); J96.01 Acute respiratory failure with hypoxia; G93.40 Encephalopathy, unspecified; K56.7 Ileus, unspecified; R04.2 Hemoptysis; G40.401 Other generalized epilepsy and epileptic syndromes, not intractable, with status epilepticus; I10 Essential (primary) hypertension; E78.5 Hyperlipidemia, unspecified; I49.01 Ventricular fibrillation; I25.10 Atherosclerotic heart disease of native coronary artery without angina pectoris; G47.33 Obstructive sleep apnea (adult) (pediatric); R73.9 Hyperglycemia, unspecified; Z87.891 Personal history of nicotine dependence; R74.01 Elevation of levels of liver transaminase levels; Z79.02 Long term (current) use of antithrombotics/antiplatelets; Z95.5 Presence of coronary angioplasty implant and graft
CPT/HCPCS: 31500; 31720; 51702; 70450; 71045; 74018; 80053; 81001; 82550; 82803; 82962; 83036; 83605; 83735; 84443; 84478; 84484; 85025; 85347; 85610; 85730; 87040; 87070; 87077; 87205; 87633; 87635; 92928; 93005; 93306; 93454; 94002; 94003; 94762; 95819; 97802; 97803; 99152; 99252; 99285; C1894; J7030; J7050; Q9957; Q9967; A4216; C1725; C1769; C1874; C1887; C8929; C9600; G0463; J1327; J3490